=== PATIENT | female | born 1975 | race Caucasian/White ===

== ENCOUNTER → 2022-02-12 | Outpatient (CLI) | payer OTHER ==
[~2022-02-12] MED LIST: ALBU90OI INH; CODACE30 PO; CODGUAEL PO; ESCI20; HYDACE5 PO; HYDACE7.5 PO; HYDR1TAB94 PO; MEDR150I; PROM25 PO; RXCODACET PO; RXHYDACE PO; RXHYDGUAS PO; RXNEOPOLHC AD; SULTRIDS PO
[2022-02-13 13:46] LABS: Candida species (DNA Probe) Negative (NEGATIVE); G. vaginalis (DNA Probe) Negative (NEGATIVE); T. vaginalis (DNA Probe) Negative (NEGATIVE)
[2022-02-14 05:07] LABS: CHLAMYDIA BY NAA Negative (Negative); GONOCOCCUS BY NAA Negative (Negative); TRICH VAG BY NAA Negative (Negative)
== END | disposition home or self-care (01) ==
LOC: LAB SHORT 09:45
PROVIDERS: Family Medicine
DX: Z01.419 Encounter for gynecological examination (general) (routine) without abnormal findings (principal)
CPT/HCPCS: 87480; 87491; 87510; 87591; 87660; 87661

== ENCOUNTER → 2023-01-28 | Outpatient (CLI) | payer BC, OTHER | LOC: LAB 15:28 → LAB SHORT 15:28 | DX: Z01.419 Encounter for gynecological examination (general) (routine) without abnormal findings (principal); R30.0 Dysuria | CPT/HCPCS: 87086 ==

== ENCOUNTER → 2023-07-18 | Outpatient (CLI) | payer BC ==
[2023-07-18 10:30] LABS: Source, Urine Clean Catch
[2023-07-18 13:20] LABS: Appearance, Urine Hazy (Clear); Bilirubin, Urine Neg (Neg); Blood, Urine 4+ (Neg); Color, Urine Yellow (P-Yellow); Glucose Qualitative, Urine Neg (Neg); Ketones, Urine 1+ (Neg); Leukocyte Esterase, Urine 3+ (Neg); Nitrite, Urine Pos (Neg); Protein, Urine 3+ (Neg); Urobilinogen, Urine NORM (Normal)
[2023-07-18 14:00] LABS: White Blood Cells, Urine 50-100 /hpf (0-5)
[2023-07-18 14:01] LABS: Amorphous Light (0-Heavy); Bacteria Many /hpf; Mucus Light (0-Heavy); Red Blood Cells, Urine 25-50 /hpf (0-2); Squamous Epithelial Cells Mod /hpf (Few); Transitional Epithelial Cells Rare /hpf (0-Rare)
[2023-07-18 15:08] LABS: Candida species (DNA Probe) Negative (NEGATIVE); G. vaginalis (DNA Probe) Positive (NEGATIVE); T. vaginalis (DNA Probe) Negative (NEGATIVE)
[2023-07-20 14:06] LABS: APTIMA MEDIA TYPE Unisex Swab; C. TRACHOMATIS BY TMA Negative (Negative); N. GONORRHOEAE BY TMA Negative (Negative); SPECIMEN SOURCE Vaginal
[2023-07-23 09:08] LABS: HPV GENOTYPE 16 Not Detected; HPV GENOTYPE 18 Not Detected; HPV HIGH RISK Not Detected; HPV SOURCE Cervical
== END ==
LOC: LAB 10:17 → LAB SHORT 10:17
PROVIDERS: Advanced Practice Midwife
DX: Z01.419 Encounter for gynecological examination (general) (routine) without abnormal findings (principal); Z11.3 Encounter for screening for infections with a predominantly sexual mode of transmission; R82.90 Unspecified abnormal findings in urine; N76.0 Acute vaginitis
CPT/HCPCS: 81001; 87077; 87086; 87186; 87480; 87491; 87510; 87591; 87624; 87660; G0123

== ENCOUNTER 2024-10-22 18:47 | Emergency (ER) | payer BC ==
[~2024-10-22] VITALS: Ht 160 cm; Wt 72.6 kg
[~2024-10-22 18:47] MED LIST changes: +PROBIOTIC DUO1 EACH PO; +VALA500 PO
[2024-10-22 19:03] VITALS: BP 163/852
[2024-10-22] MEDS ORDERED: Ketorolac Tromethamine 15mg Vial IM ONE (20:15)
== END 2024-10-22 20:35 | disposition home or self-care (01) ==
LOC: ER 18:47
DX: K08.89 Other specified disorders of teeth and supporting structures (principal); J32.0 Chronic maxillary sinusitis; F17.200 Nicotine dependence, unspecified, uncomplicated; Z88.8 Allergy status to other drugs, medicaments and biological substances; Z79.899 Other long term (current) drug therapy
CPT/HCPCS: 70487; 96372; 99283-25; J1885; Q9967